=== PATIENT | female | born 1970 | race American Indian/Alaskan Native ===

== ENCOUNTER 2017-08-06 09:58 | Outpatient (CLI) | payer MEDICAID ==
--- NOTE | 2017-08-06 10:44 | XRay Report ---
Bilateral hands: Pain. No additional history given. There are severe contraction deformities involving the third through fifth digits of the both hands and both mild flexion deformity of the first and second digits all occurring at the MP joints. The third through fifth MP joints are also subluxed. As is the right first MP joint. The joint spaces do not appear significantly narrowed and there are no articular or periarticular erosions. The bones are generally demineralized. The intercarpal bone spaces of the right hand appear generally narrowed but not on the left side. There is generalized mild edema of the soft tissues. Impressions: The findings are nonspecific but SLE is a consideration.
== END 2017-08-06 09:59 | disposition home or self-care (01) ==
LOC: SPVIMAG 09:58
PROVIDERS: ATTEND Orthopaedic Surgery Sports Medicine
DX: S63.212A Subluxation of metacarpophalangeal joint of right middle finger, initial encounter (principal); S63.218A Subluxation of metacarpophalangeal joint of other finger, initial encounter; S63.213A Subluxation of metacarpophalangeal joint of left middle finger, initial encounter; S63.217A Subluxation of metacarpophalangeal joint of left little finger, initial encounter; M24.542 Contracture, left hand; M24.541 Contracture, right hand; M21.242 Flexion deformity, left finger joints; M21.241 Flexion deformity, right finger joints; X58.XXXA Exposure to other specified factors, initial encounter; Y93.89 Activity, other specified; Y92.89 Other specified places as the place of occurrence of the external cause; Y99.8 Other external cause status